=== PATIENT | female | born 1955 | race Caucasian/White ===

== ENCOUNTER 2025-02-04 14:37 | Inpatient (IN) | payer MEDICARE, BC ==
[~2025-02-04] VITALS: Ht 162.6 cm; Wt 49.9 kg
[2025-02-04] MEDS ORDERED: MAGN400O6 PO (15:05)
[2025-02-04] MEDS ORDERED: DOCU100C36 PO (15:05)
[2025-02-04] MEDS ORDERED: ACET325C7 PO (15:05)
[2025-02-04] MEDS ORDERED: DULO30CA2 PO (15:05)
[2025-02-04] MEDS ORDERED: LIDOCAINE PATCH 4% TD (15:05)
[2025-02-04] MEDS ORDERED: DILT360C28 PO (15:05)
[2025-02-04] MEDS ORDERED: LORA0.5T48 PO (15:05)
[2025-02-04] MEDS ORDERED: TRAZ-182 PO (15:05)
[2025-02-04] MEDS ORDERED: SENN8.6T19 PO (15:05)
[2025-02-04] MEDS ORDERED: CHOL100034 PO (15:05)
[2025-02-04] MEDS ORDERED: CHLO25TA2 PO (15:05)
[2025-02-04] MEDS ORDERED: BISA10SU61 RC (15:05)
[2025-02-04] MEDS ORDERED: FERR-56 PO (15:05)
[2025-02-04] MEDS ORDERED: NA P133E RC (15:05)
[2025-02-04] MEDS ORDERED: PANT40TA2 PO (15:05)
[2025-02-04] MEDS ORDERED: LISI40TA13 PO (15:05)
[2025-02-04] MEDS ORDERED: POLY119P17 PO (15:05)
[2025-02-04 15:25] LABS: BASOPHILS # (AUTO) 0.1 K/UL (0.0-0.2); BASOPHILS % (AUTO) 1.1 % (0.0-2.0); DIFFERENTIAL COMMENT 1; EOSINOPHILS # (AUTO) 0.1 K/uL (0.0-0.7); EOSINOPHILS % (AUTO) 2.1 % (0.0-7.0); HEMATOCRIT 37.5 % (31.2-41.9); HEMOGLOBIN 12.5 g/dL (10.9-14.3); LYMPHOCYTES # (AUTO) 1.3 K/uL (0.8-4.8); LYMPHOCYTES % (AUTO) 17.7 % (20.5-51.5); MEAN CORPUSCULAR HEMOGLOBIN 30.4 uug (24.7-32.8); MEAN CORPUSCULAR HGB CONC 33 g/dL (32.3-35.6); MEAN CORPUSCULAR VOLUME 91.5 fL (75.5-95.3); MONOCYTES # (AUTO) 0.6 K/uL (0.1-1.30); MONOCYTES % (AUTO) 8.2 % (0.0-11.0); NEUTROPHILS % (AUTO) 70.9 % (38.5-71.5); PLATELET COUNT (AUTO) 240 K/uL (179-408); RED CELL DISTRIBUTION WIDTH 13.9 % (12.3-17.7); WHITE BLOOD COUNT (AUTO) 7.1 K/uL (3.8-11.8)
[2025-02-04 16:02] LABS: MAGNESIUM 2.3 mg/dL (1.8-2.4)
[2025-02-04] MEDS: BLOOD SUGAR DIAGNOSTIC 1 EACH STRIP VI ONE (20:45)
[2025-02-04] MEDS ORDERED: LORAZEPAM 1 MG TABLET PO PRN (20:45)
[2025-02-04] MEDS ORDERED: MAG HYDROX/AL HYDROX/SIMETH 30 ML LIQUID UDC PO PRN (20:45)
[2025-02-04] MEDS ORDERED: ZOLPIDEM 5 MG TABLET PO PRN ×2 (20:45)
[2025-02-04] MEDS ORDERED: MAGNESIUM HYDROXIDE 30 ML LIQUID UDC PO PRN (20:45)
[2025-02-04] MEDS ORDERED: ACETAMINOPHEN 325 MG TABLET PO PRN (20:45)
[2025-02-04 20:57] VITALS: BP 146/94; TEMP 98
[2025-02-05] MEDS: LORAZEPAM 0.5 MG TABLET PO PRN (01:46)
[2025-02-05 08:20] VITALS: BP 112/71; TEMP 98; O2SAT 97
[2025-02-05] MEDS ORDERED: LORAZEPAM 1 MG TABLET PO PRN (09:30)
[2025-02-05] MEDS: ENSURE ENLIVE (VAN) 240 ML LIQUID PO SCH (12:15)
[2025-02-05] MEDS: DOCUSATE SODIUM 100 MG CAPSULE PO SCH (16:14)
[2025-02-05] MEDS: SENNOSIDES 1 TABLET PO SCH (16:14)
[2025-02-05 17:13] VITALS: BP 115/64; TEMP 98; O2SAT 97
[2025-02-05 18:04] LABS: THYROID STIMULATING HORMONE 2.632 mIU/mL (0.358-3.740)
[2025-02-05 19:45] VITALS: BP 110/68; TEMP 98.6; O2SAT 95
[2025-02-05] MEDS: QUETIAPINE FUMARATE 25 MG TABLET PO SCH (20:27)
[2025-02-05] MEDS: TRAZODONE 50 MG TABLET PO SCH (20:27)
[2025-02-06 08:16] VITALS: BP 99/73; TEMP 98; O2SAT 96
[2025-02-06] MEDS: ESCITALOPRAM OXALATE 10 MG TABLET PO SCH (08:50)
[2025-02-06] MEDS: PANTOPRAZOLE SODIUM 40 MG TABLET.DR PO SCH (08:50)
[2025-02-06] MEDS: LIDOCAINE 5% PATCH TD SCH (08:51)
[2025-02-06] MEDS: CHLORTHALIDONE 25 MG TABLET PO SCH (08:51)
[2025-02-06] MEDS: MIRALAX 17 GM POWD.PACK PO SCH (08:51)
[2025-02-06] MEDS: DILTIAZEM HCL CD 180 MG CAP.SR.24H PO SCH (08:55)
[2025-02-06] MEDS: LISINOPRIL 20 MG TABLET PO SCH (08:56)
[2025-02-06] MEDS: CHOLECALCIFEROL 1,000 UNIT TABLET PO SCH (08:57)
[2025-02-06 16:04] VITALS: BP 105/71; TEMP 98; O2SAT 98
[2025-02-06 20:00] VITALS: BP 110/82; TEMP 98.7; O2SAT 97
[2025-02-07 08:00] VITALS: BP 117/70; TEMP 98; O2SAT 98
[2025-02-07] MEDS: DILTIAZEM HCL CD 240 MG CAP.SR.24H PO SCH (09:28)
[2025-02-07] MEDS: LISINOPRIL 20 MG TABLET PO SCH (09:28)
[2025-02-07] MEDS: FERROUS SULFATE 325 MG TABEC PO SCH (09:28)
[2025-02-07] MEDS: LORAZEPAM 0.5 MG TABLET PO PRN (14:58)
[2025-02-07 15:39] VITALS: BP 112/73; TEMP 98; O2SAT 96
[2025-02-07 20:00] VITALS: BP 128/75; TEMP 98.6; O2SAT 96
[2025-02-08] MEDS: QUETIAPINE FUMARATE 25 MG TABLET PO SCH (08:58)
[2025-02-08 10:07] VITALS: BP 104/68; TEMP 98.1; O2SAT 98
[2025-02-08 16:28] VITALS: BP 103/73; TEMP 98; O2SAT 96
[2025-02-08 19:42] VITALS: BP 128/68; TEMP 98.6; O2SAT 97
[2025-02-09 08:54] VITALS: BP 99/67; TEMP 98.1; O2SAT 98
[2025-02-09 16:12] VITALS: BP 109/70; TEMP 98.6; O2SAT 96
[2025-02-09 20:17] VITALS: BP 100/66; TEMP 98.1; O2SAT 96
[2025-02-10 08:20] VITALS: BP 140/71; TEMP 98; O2SAT 99
[2025-02-10 16:38] VITALS: BP 107/66; TEMP 98.1; O2SAT 96
[2025-02-10 20:00] VITALS: BP 88/50; TEMP 98.4; O2SAT 97
[2025-02-11 07:59] VITALS: BP 97/58; TEMP 97.2; O2SAT 98
[2025-02-11] MEDS: QUETIAPINE FUMARATE 25 MG TABLET PO SCH (08:57)
[2025-02-11 16:00] VITALS: BP 97/62; TEMP 97.6; O2SAT 97
[2025-02-11 20:22] VITALS: BP 100/60; TEMP 98.1; O2SAT 98
[2025-02-12 08:00] VITALS: BP 103/64; TEMP 98.3; O2SAT 100
[2025-02-12] MEDS: LISINOPRIL 10 MG TABLET PO SCH (08:43)
[2025-02-12] MEDS ORDERED: LISINOPRIL 20 MG TABLET PO SCH (09:00)
[2025-02-12 16:06] VITALS: BP 115/66; TEMP 97.8; O2SAT 95
[2025-02-12 20:09] VITALS: BP 135/69; TEMP 98.1; O2SAT 96
[2025-02-13 08:05] VITALS: BP 104/68; TEMP 98; O2SAT 96
[2025-02-13 15:52] VITALS: BP 124/61; TEMP 98; O2SAT 96
[2025-02-14 07:37] VITALS: BP 133/63; TEMP 98; O2SAT 98
[2025-02-14 09:03] VITALS: BP 133/63
== END 2025-02-14 12:00 | DRG 885 ==
LOC: ER 14:37 → GPS 15:30
PROVIDERS: ADMIT Psychiatry & Neurology Psychiatry; ATTEND Nurse Practitioner Family
DX: F39 Unspecified mood [affective] disorder (principal); G93.40 Encephalopathy, unspecified; Z86.73 Personal history of transient ischemic attack (TIA), and cerebral infarction without residual deficits; Z96.21 Cochlear implant status; M81.0 Age-related osteoporosis without current pathological fracture; K21.9 Gastro-esophageal reflux disease without esophagitis; D64.9 Anemia, unspecified; R26.81 Unsteadiness on feet; G71.3 Mitochondrial myopathy, not elsewhere classified; I10 Essential (primary) hypertension; I95.9 Hypotension, unspecified; F41.9 Anxiety disorder, unspecified; F94.0 Selective mutism; Z79.899 Other long term (current) drug therapy; R13.10 Dysphagia, unspecified
CPT/HCPCS: 36415; 70450; 83735; 83921; 84443; 85025